=== PATIENT | female | born 1980 | race Caucasian/White ===

== ENCOUNTER 2017-09-25 02:54 | Inpatient (IN) ==
[~2017-09-25 02:54] MED LIST: Famotidine 20 MG/2 ML VIAL IVP PRN; Metoclopramide 10 MG/2 ML VIAL IVP PRN; Naloxone 0.4 MG/ML INJ IVP PRN; Ondansetron 4 MG/2 ML VIAL IVP PRN; Oxytocin 20 units/ LR 1000 mL 20 UNIT/1,000 ML BAG IVC SCH; Penicillin G Potassium 5,000,000 UNIT in 0.9 % Sodium Chloride Mini Bag 100 ML IVPB ONE
[2017-09-25 03:01] LABS: Basophils % 0.3 %; Eosinophils # 0.1 K/mcL (0.0-0.6); Eosinophils % 0.9 %; Hematocrit 35.2 % (35.3-44.9); Hemoglobin 12.2 g/dL (11.5-15.4); Immature Granulocytes % 0.5 % (0-4); Immature Platelets 17.7 % (1.1-6.1); Lymphocytes # 1.6 K/mcL (0.6-4.6); Lymphocytes % 12.6 %; Mean Corpuscular HGB Conc 34.7 g/dL (31.6-35.5); Mean Corpuscular Hemoglobin 31.3 pg (28.0-33.3); Mean Corpuscular Volume 90.3 fL (83.0-100.0); Mean Platelet Volume 12.7 fL (9.4-12.4); Monocytes # 0.9 K/mcL (0.0-1.3); Neutrophils # 10.1 K/mcL (1.6-8.9); Platelet Count 150 K/mcL (140-400); Segmented Neutrophils % 78.7 %
[2017-09-25] MEDS: Ringers Solution, Lactated 1,000 ML IVC SCH ×2 (03:08→07:37)
[2017-09-25] MEDS ORDERED: Penicillin G Potassium 2,500,000 UNIT in 0.9 % Sodium Chloride 100 ML IVPB SCH (04:00)
[2017-09-25] MEDS ORDERED: *HR* Nalbuphine 10 MG/ML AMPUL IV PRN (05:54)
[2017-09-25] MEDS ORDERED: Epidural Premix (fent/bupiv) 110 ML EP ONE (06:18)
[2017-09-25] MEDS ORDERED: Lidocaine -MPF 2% 5 ML VIAL ONE (06:20)
[2017-09-25 06:33] LABS: Amphetamine Screen,Urine Negative ng/mL (Cutoff=1000); Barbiturate Screen,Urine Negative ng/mL (Cutoff=200); Benzodiazepines Screen,Urine Negative ng/mL (Cutoff=200); Cannabinoid Screen,Urine Negative ng/mL (Cutoff = 50); Cocaine Screen,Urine Negative ng/mL (Cutoff= 300); Opiate Screen,Urine Negative ng/mL (Cutoff=300); Phencyclidine Screen,Urine Negative ng/mL (Cutoff=25)
[2017-09-25] MEDS ORDERED: EPHEDrine 50 MG/ML VIAL IVP PRN (06:52)
--- NOTE | 2017-09-25 06:56 | Anesthesia Evaluation PreOp ---
Date of Encounter: 09/25/17 Time of Encounter: 06:53 - Past History Planned Operation: vaginal del, G1 induction 37wk Cardiac History: Denies any Significant Hx Pulmonary History: Denies Any Significant HX [employer] History: Denies Any Significant HX Other Medical History: Other (previous one level hernated disc unsure what level , occ non dependent radiculopathy to right upper thigh,) Anesthesia History: No Prior Anesthetic Complications, Past Anesthesia Alcohol Use: none Drug use: none Medications and Allergies 3 Allergy/AdvReac Type Severity Reaction Status Date / Time No Known Allergies Allergy Verified 02/18/15 08:11 Anesthesia Results - Labs 09/25/17 02:51 Anesthesia Exam - HEENT Pupil (Motor): Pupils equal Mallampati: II Teeth: Normal Oral Opening: Greater than 3 - [employer] LOC: Oriented [employer] Motor: Normal RUE, Normal LUE, Normal RLE, Normal LLE, Normal Face [employer] Sensory: Normal: RUE, LUE, RLE, LLE, Face - Cardiac Rhythm: Regular Murmur: None - Pulmonary Breath Sounds: bilateral Clear Respiratory Effort: Symmetrical Anesthesia Assess/Plan ASA Score: 2 Modified Octavia Scale for Level of Consciousness: Cooperative, oriented, and tranquil Anesthetic Plan: General, Regional Monitoring Plan: Standard Monitors Recovery Plan: PACU
[2017-09-25] MEDS ORDERED: Epidural Premix (fent/bupiv) 110 ML EP SCH (07:00)
[2017-09-25] MEDS ORDERED: Chloroprocaine/PF 20 ML VIAL INFILT ONE (09:37)
[2017-09-25] MEDS ORDERED: *HR* Oxytocin 10 UNIT/ML VIAL IM ONE ×2 (09:37→10:01)
[2017-09-25] MEDS ORDERED: Water for inj. (sterile) 10 ML IV ONE (09:37)
[2017-09-25] MEDS ORDERED: MetroNIDAZOLE 500 MG/100 ML 500 MG/100 ML BAG IVPB ONE (09:44)
[2017-09-25] MEDS ORDERED: Morphine Sulfate/PF 5mg/10mL Vial ONE (09:48)
[2017-09-25] MEDS ORDERED: Ringers Solution, Lactated 1,000 ML ONE (10:01)
--- NOTE | 2017-09-25 10:06 | OB Labor Progress Note ---
Date of Encounter: 09/25/17 Time of Encounter: 09:19 Labor Progress Note - Plan Plan: CNM called to room by set staff fitter who state FHT are audible down in the 70's-80's and they are having difficulty tracing. FSE placed upon my arrival at 0914. At this point it appears FHT have been down for approx 3-4 minutes. Pt repositioned to right lateral position following FSE placement. Pitocin is off and IV LR is bolusing. Oxygen placed at 10 liters via facemask. FHT remain bradycardic. Pt repositioned to hands and knees with RN and CNM assist. At this time I requested RN to call Dr. Chirinos and/or Dr. Calhoun for possible delivery. Decision made at this time to move to OR. Pt moved from LDR 9 at 0919. Report given to Dr. Chirinos at this time.
[2017-09-25] MEDS ORDERED: Ondansetron 4 MG/2 ML VIAL IVP ONE (10:09)
[2017-09-25] MEDS ORDERED: *HR* Morphine 2 MG/ML SYRINGE IVP PRN (10:09)
[2017-09-25] MEDS ORDERED: *HR* HYDROmorphone (PF) 1 MG/ML SYRINGE IVP PRN (10:09)
[2017-09-25] MEDS ORDERED: *HR* Promethazine 25 MG/ML VIAL IVP PRN (10:09)
[2017-09-25] MEDS ORDERED: Acetaminophen IV 1,000 MG/100 ML INFUS..BTL IVPB ONE (10:09)
--- NOTE | 2017-09-25 11:14 | OB/GYN Procedure Note ---
Section - Date of procedure: 09/25/17 Preop diagnosis: category 3 FHT tracing (6cm,37 weeks) Post-op diagnosis: same (Anterior exophytic fibroid) Procedure: section, primary low transverse Surgeon: Fouzia Bonilla Blood Loss: 500 Was there an legal administrative assistant present: No Supervisor Wet Room: Rupinder Carlson Anesthesia Type: Epidural section complications: none Disposition: L&D Recovery Room Specimens: Placenta - (s) Infant A Delivery Date: 09/25/17 Delivery Time: 09:42 Presentation: vertex Position: MIGUEL Route of delivery: other ( section) Gender: Male Viability: Viable Pounds: 8 Ounces: 10 Gram Weight: 3.912 kg at 1 minute: 8 at 5 minutes: 9 Shoulder Dystocia: not encountered Placenta: spontaneous, uterine exploration Cord: nuchal cord, 3 umbilical vessels, nuchal reduced - Narrative Narrative: I was called by labor and delivery while in the main operating room to attend for heart rate in the 90s, for approximately 8 minutes despite patient repositioning by CNDeion, of a Angelo Bueno M.D. patient. Dr. Chirinos was contacted as he was available on the unit while I was making my way to labor and delivery. Upon my arrival the patient was in the labor and delivery operating room and prepped. She had an internal heart rate monitor which showed the heart tones as stable and reassuring in the 130s to 140s. At that time the was changed from emergent to unscheduled. Informed consent was obtained both verbally and written. The patient had the internal scalp electrode disconnected but it was unable to be removed. The patient was prepped and draped in the usual sterile fashion and a timeout was completed. A Pfannenstiel skin incision was made with the scalpel and sharply dissected down to the fascia in the midline. The fascial incision was then extended bilaterally with Hernández scissors. 2 straight Dax clamps are placed on the fascial edge inferiorly and the rectus muscles were sharply and bluntly reflected inferiorly. This was repeated superiorly. The diastases was then used to identify the peritoneum and this was grasped with 2 hemostats and entered with Metzenbaum scissors. There was a 5 x 4 exophytic fibroid noted anteriorly in the superior portion of the uterus which appeared smooth. The patient was awake and she was questioned if she was known to have this. She reported that she was in that by ultrasound it had not been changing in size. She also reported that she had an ultrasound a week ago which showed the baby weighed over 7 pounds. The bladder blade was placed to protect the bladder. The vesicouterine peritoneum was then grasped and reflected inferiorly using blunt and sharp dissection with Metzenbaum scissors. Bladder blade was replaced to protect the bladder. A low transverse incision was then made in the lower uterine segment with a scalpel down to the amnion. This was then extended bluntly bilaterally. The amnion was then bluntly entered and clear fluid was seen. This was followed by the vertex delivery of a vigorous male weighing 8 lbs. 10 oz. with Apgars of 8 at 1 minute and 9 at 5 minutes. There was a loose nuchal which was reduced. The cord was clamped and cut after a delay during which the was bulb suctioned on the operating field. A cord segment was obtained to be held in case there was need for it later. Cord blood was obtained, later to be discarded. The placenta was then delivered spontaneous and intact. The uterus was wiped clean with a moist lap sponge. The uterine incision was then closed in a running locking fashion. Gloves were changed. A second imbricating layer was made with 0 Vicryl suture. Good hemostasis was achieved with several [id number] sutures using 0 Vicryl. The tubes and ovaries were inspected and noted appeared to be grossly normal. Of note, there were several 5-10 millimeter size superficial fibroids, both anterior and posterior. Pelvis was then irrigated with sterile water and good hemostasis was assured. Peritoneal edges and rectus muscles were inspected and good hemostasis noted. Fascia was then closed using an 0 PDS loop in a running nonlocking fashion. Subcutaneous tissue was irrigated and good hemostasis achieved. The mutation layer was closed using a strata fixing a running nonlocking fashion. Skin was then closed with 4-0 Monocryl in a running subcuticular fashion. Dermabond with mesh was used to cover incision. Will was noted to be draining clear yellow urine at the end of procedure. Estimated blood loss 500 mL's. Complications none. Patient was taken to recovery room in stable condition. All sponge and instrument counts were correct at the end of the procedure.
--- NOTE | 2017-09-25 12:54 | Anesthesia Evaluation Post Op ---
Date of Encounter: 09/25/17 Time of Encounter: 12:00 - Vital Signs Vital Signs: VSS throughout recovery process. - Lungs Lungs: Clear Ascult./Percussion - Airway Airway: Non-obstructed - Cardiovascular Regular Rate - Mental Status Mental Status: Alert & Oriented, Answers Appropriately - Pain Pain Scale: 6 (down from an 8 or 9) Pain Scale used: Numeric (1 - 10) - Nausea Vomiting Nausea Vomiting: Not Present - Hydration Hydration: NPO, Will catheter - Discharge PostOp Status: Transfer Patient to floor
[2017-09-25] MEDS ORDERED: Oxytocin 20 units/ LR 1000 mL 20 UNIT/1,000 ML BAG IVC SCH (13:35)
[2017-09-25] MEDS ORDERED: Simethicone 80 MG TAB.CHEW PO PRN (13:35)
[2017-09-25] MEDS ORDERED: Metoclopramide 10 MG/2 ML VIAL IVP PRN (13:35)
[2017-09-25] MEDS ORDERED: Sennosides 8.6 MG TABLET PO PRN (13:35)
[2017-09-25] MEDS ORDERED: Ondansetron 4 MG/2 ML VIAL IVP PRN (13:35)
--- NOTE | 2017-09-25 14:23 | OB/GYN History & Physical ---
Date of Encounter: 09/25/17 Time of Encounter: 14:20 Assessment and Plan (1) Normal first stage of labor Current visit: Yes Status: Acute Plan is expectant management History of Present Illness HPI: Ms. Maldonado is a 36 year old female who presents to labor and delivery with spontaneous rupture of membranes. Patient jose irregularly on admission. She denied any complaints on admission. Baby was reactive. Irregular contractions noted. Past Med Surg Social Fam HX - Past Medical History Medical history: diabetes Psychiatric history: anxiety - Past Surgical History Additional surgical history: tonsils/adenoids,wisdom teeth - Social History Smoking Status: Former smoker Smokeless Tobacco Status: No Alcohol use: none Drug use: none - Family History Grandfather Adopted: No Family Member Ethnicity: Non- Living Status: Still Living Hx Family Cardiac Disorders: No Hx Family Respiratory Disorders: No Hx Family Cancer: No Hx Family GI Disorders: No Hx Family Genitourinary Disorders: No Hx Family Endocrine Disorder: Yes Hx Family Musculoskeletal Disorders: No Hx Family Neuromuscular Disorders: No Hx Family Neurologic Disorders: No Hx Family HEENT Disorders: No Hx Family Autoimmune Disorders: No Hx Family Reproductive Disorders: No Hx Family Psychosocial Disorders: No Hx Family Medical Disorders: No Obstetrical History - Pregnancies : 1 Medications and Allergies Multi Tablet 09/25/17 [History] 3 Allergy/AdvReac Type Severity Reaction Status Date / Time No Known Allergies Allergy Verified 02/18/15 08:11 Review of System OB - Menstruation Menstruation: amenorrhea Exam - Vital Signs Vital signs: Initial Vital Signs Temp Pulse Resp BP Pulse Ox 98.4 F 66 12 108/67 97 09/25/17 13:00 09/25/17 13:00 09/25/17 13:00 09/25/17 13:00 09/25/17 13:00 - Constitutional Constitutional: well developed, well nourished, no acute distress, average body habitus - HEENT HEENT: Normocephaly, Mucus Membranes Moist - Neck Neck exam: full ROM - Lungs Respiratory exam: CTAB - Cardiovascular Cardiovascular exam: RRR - Abdomen Abdomen: Present: bowel sounds normal, gravid, non tender - Extremities Extremities exam: full ROM, pedal edema Deep Tendon Reflex Grade: 2+ Normal - Cervix Dilation: 2 Effacement: 50 Station: -2 - Uterus Uterus exam: Present: enlarged Results Result Diagrams: 09/25/17 02:51 Abnormal lab results WBC 12.8 K/mcL (4.3-11.1) H 09/25/17 02:51 Hct 35.2 % (35.3-44.9) L 09/25/17 02:51 RDW 16.0 % (11.5-14.5) H 09/25/17 02:51 MPV 12.7 fL (9.4-12.4) H 09/25/17 02:51 Neutrophils # 10.1 K/mcL (1.6-8.9) H 09/25/17 02:51 Immature Plt Fraction 17.7 % (1.1-6.1) H 09/25/17 02:51 All other labs normal.
[2017-09-25] MEDS: Ibuprofen 600 MG TABLET PO PRN (21:10)
[2017-09-26 05:04] LABS: Basophils % 0.2 %; Eosinophils # 0.1 K/mcL (0.0-0.6); Eosinophils % 0.8 %; Hematocrit 31.8 % (35.3-44.9); Hemoglobin 10.6 g/dL (11.5-15.4); Immature Granulocytes % 0.8 % (0-4); Lymphocytes # 1.1 K/mcL (0.6-4.6); Lymphocytes % 7.4 %; Mean Corpuscular HGB Conc 33.3 g/dL (31.6-35.5); Mean Corpuscular Hemoglobin 30.2 pg (28.0-33.3); Mean Corpuscular Volume 90.6 fL (83.0-100.0); Monocytes # 1.3 K/mcL (0.0-1.3); Neutrophils # 11.5 K/mcL (1.6-8.9); Platelet Count 118 K/mcL (140-400); Red Blood Count 3.51 M/mcL (3.82-4.97); Segmented Neutrophils % 81.8 %
[2017-09-26] MEDS: Ibuprofen 600 MG TABLET PO PRN ×2 (05:18→16:16)
[2017-09-26] MEDS: Prenatal Vit/FA 1 EACH TABLET PO SCH (08:28)
[2017-09-26] MEDS: *HR* OxyCODONE/APAP 5/325 TABLET PO PRN ×2 (08:28→17:14)
--- NOTE | 2017-09-26 09:36 | Anesthesia Procedures ---
Date of Encounter: 09/26/17 (late entry done 09/25/17) Time of Encounter: 06:39 (late entry ) Procedures: Anesthesia - Epidural/Spinal Patient ID/Chart reviewed: Yes Patient examined: Yes OB Eval: : 1 OB Eval: Contractions: Non-stressed pattern Consent Obtained: Yes Supplemental Oxygen: None/Room Air Site Prep: Aseptic Technique, Sterile prep and drape, 0.5% Chlorhexidine/Alcohol Patient position: upright Local Anesthetic: Lidocaine 1% Amount of Local Anesthetic used: 2 Touhy Needle Gauge: 18 Touhy Needle Depth (cm): 7 Catheter Depth at Skin (cm): 12 Test Dose (1.5% Lido + Epi): Volume given (mls): 3 Test Dose Result: Negative Loading Dose: Other: 10ml from solution Loading Dose Administered: Thru Catheter Infusion Med: 0.125% Bupivacaine w/ 2 mcg/ml Fentanyl Infusion Rate (mls/hr): [address]: Tegaderm, Tape Interspace Used: L3-L4 Loss of Resistance (LISA): Yes (saline) Blood: No CSF: No Paresthesia: No Procedure: vss though out, FHR stable per RN's
--- NOTE | 2017-09-26 14:57 | OB/GYN Progress Note ---
Date of Encounter: 09/26/17 Time of Encounter: 14:54 - Assessment and Plan (1) S/P section Current Visit: Yes Status: Acute Stable POD #1 Continue current management Anticipate discharge tomorrow. Subjective - Subjective Interval history: Pain well managed, pt up and ambulating, voiding without difficulty, . Patient reports: voiding normally, pain well controlled, ambulating normally [place]: doing well, nursing well Objective - Vital Signs Latest vital signs: Vital Signs Temp Pulse Resp BP Pulse Ox 09/26/17 08:29 98.3 F 84 16 112/73 97 09/26/17 04:45 98.0 F 74 16 105/68 97 09/26/17 00:15 98.9 F 83 16 86/40 96 09/25/17 21:15 98.7 F 82 16 100/66 97 09/25/17 16:00 98.7 F 82 12 110/66 97 09/25/17 15:00 98.4 F 80 16 115/67 97 Intake and Output 09/25/17 09/26/17 09/26/17 23:59 07:59 15:59 Intake Total 500 / 500 400 / 400 Output Total 550 / 550 1550 / 1550 400 / 400 Balance -50 / -50 -1150 / -1150 -400 / -400 Intake: Oral 500 / 500 400 / 400 Output: Urine 400 / 400 Catheter 550 / 550 1550 / 1550 Other: Meal Dinner Percent of Meal Consumed 90% Weight 109.4 kg Patient Weight 09/26/17 23:59 Weight 109.4 kg - Exam Lungs: bilateral: normal Chest: Normal S1, Normal S2 Extremities: Present: normal Abdomen: Present: soft Incision: Present: dressed Uterus: Present: firm (at U) - Labs Labs: Laboratory Results - last 24 hr 09/26/17 04:50 WBC 14.1 H RBC 3.51 L Hgb 10.6 L D Hct 31.8 L MCV 90.6 MCH 30.2 MCHC 33.3 RDW 16.0 H Plt Count 118 L MPV 12.0 Immature Gran % 0.8 Seg Neutrophils % 81.8 Lymphocytes % 7.4 Monocytes % 9.0 Eosinophils % 0.8 Basophils % 0.2 Neutrophils # 11.5 H Lymphocytes # 1.1 Monocytes # 1.3 Eosinophils # 0.1 Basophils # 0.0
--- NOTE | 2017-09-26 16:09 | OB Labor Progress Note ---
Date of Encounter: 09/26/17 Time of Encounter: 17:42 Labor Progress Note - Subjective Subjective: Pt feeling well this afternoon. No complaints. Incision dry and intact. No signs of infection. Baby doing well, feeding well. - Plan Plan: Current management. Discharge to home tomorrow.
--- NOTE | 2017-09-26 16:12 | Discharge Summary ---
Date of Encounter: 09/26/17 Time of Encounter: 16:19 - Discharge Diagnosis (1) Normal first stage of labor Status: Acute - Discharge Medications Home Medications: Multi Tablet 09/25/17 [History] Allergies/Adverse Reactions: 3 Allergy/AdvReac Type Severity Reaction Status Date / Time No Known Allergies Allergy Verified 02/18/15 08:11 Data Procedures and tests throughout hospitalization: Laboratory Tests 09/25/17 09/25/17 09/26/17 02:51 05:58 04:50 WBC 12.8 H 14.1 H RBC 3.90 3.51 L Hgb 12.2 10.6 L D Hct 35.2 L 31.8 L MCV 90.3 90.6 MCH 31.3 30.2 MCHC 34.7 33.3 RDW 16.0 H 16.0 H Plt Count 150 118 L MPV 12.7 H 12.0 Immature Gran % 0.5 0.8 Seg Neutrophils % 78.7 81.8 Lymphocytes % 12.6 7.4 Monocytes % 7.0 9.0 Eosinophils % 0.9 0.8 Basophils % 0.3 0.2 Neutrophils # 10.1 H 11.5 H Lymphocytes # 1.6 1.1 Monocytes # 0.9 1.3 Eosinophils # 0.1 0.1 Basophils # 0.0 0.0 Immature Plt Fraction 17.7 H Urine Opiates Screen Negative Ur Barbiturates Screen Negative Ur Phencyclidine Scrn Negative Ur Amphetamines Screen Negative U Benzodiazepines Scrn Negative Urine Cocaine Screen Negative U Marijuana (THC) Screen Negative Ur Drug Screen Interp See Below Labs on day of discharge: Labs from last 24 hours 09/26/17 04:50 WBC 14.1 H RBC 3.51 L Hgb 10.6 L D Hct 31.8 L MCV 90.6 MCH 30.2 MCHC 33.3 RDW 16.0 H Plt Count 118 L MPV 12.0 Immature Gran % 0.8 Seg Neutrophils % 81.8 Lymphocytes % 7.4 Monocytes % 9.0 Eosinophils % 0.8 Basophils % 0.2 Neutrophils # 11.5 H Lymphocytes # 1.1 Monocytes # 1.3 Eosinophils # 0.1 Basophils # 0.0 - Impressions POD#2. s/p primary section. No complaints. Normal postoperative care. Date of admission: 09/25/17 02:54 Primary care physician: Ese Webster CNP Discharging clinician: Angelo Pavon Anticipated date of discharge: 09/26/17 - Patient Status Disposition: Home, Self-Care Condition: Good Functional capacity at discharge: independent ambulation Overall status at discharge: patient is back to baseline - Discharge Instructions Follow Up With: Ese Webster CNP [Primary Care Provider] - Angelo Pavon MD [Partnered Physician] - Hospital Course HEAD OF MUSIC Time Attestation: Total time spent providing and/or coordinating discharge services: Exam - Constitutional Vitals: Temp Pulse Resp BP Pulse Ox 98.3 F 84 16 112/73 97 09/26/17 08:29 09/26/17 08:29 09/26/17 08:29 09/26/17 08:29 09/26/17 08:29 General appearance IM: A&O X 3, pleasant, no acute distress - Respiratory Respiratory exam: Present: CTAB - Cardiovascular Cardiovascular exam IM: Present: RRR - GI/Abdominal GI/Abdominal exam IM: normal bowel sounds Incision: normal, dry, intact - Rectal Rectal exam: deferred - Uterine Tone: Firm Uterus Position: 4 Fingers Below Umbilicus - Extremities Exam Extremities exam IM: Present: normal inspection - VTE Documentation of Mechanical Device: Intermittent pneumatic compression device
--- NOTE | 2017-09-26 16:51 | Discharge Summary ---
Date of Encounter: 09/26/17 Time of Encounter: 17:58 - Discharge Diagnosis (1) Breast feeding status of mother Priority: Secondary Status: Acute (2) S/P section Priority: Primary Status: Acute - Discharge Medications Home Medications: Multi Tablet 09/25/17 [History] Allergies/Adverse Reactions: 3 Allergy/AdvReac Type Severity Reaction Status Date / Time No Known Allergies Allergy Verified 02/18/15 08:11 Data Procedures and tests throughout hospitalization: Laboratory Tests 09/25/17 09/25/17 09/26/17 02:51 05:58 04:50 WBC 12.8 H 14.1 H RBC 3.90 3.51 L Hgb 12.2 10.6 L D Hct 35.2 L 31.8 L MCV 90.3 90.6 MCH 31.3 30.2 MCHC 34.7 33.3 RDW 16.0 H 16.0 H Plt Count 150 118 L MPV 12.7 H 12.0 Immature Gran % 0.5 0.8 Seg Neutrophils % 78.7 81.8 Lymphocytes % 12.6 7.4 Monocytes % 7.0 9.0 Eosinophils % 0.9 0.8 Basophils % 0.3 0.2 Neutrophils # 10.1 H 11.5 H Lymphocytes # 1.6 1.1 Monocytes # 0.9 1.3 Eosinophils # 0.1 0.1 Basophils # 0.0 0.0 Immature Plt Fraction 17.7 H Urine Opiates Screen Negative Ur Barbiturates Screen Negative Ur Phencyclidine Scrn Negative Ur Amphetamines Screen Negative U Benzodiazepines Scrn Negative Urine Cocaine Screen Negative U Marijuana (THC) Screen Negative Ur Drug Screen Interp See Below Labs on day of discharge: Labs from last 24 hours 09/26/17 04:50 WBC 14.1 H RBC 3.51 L Hgb 10.6 L D Hct 31.8 L MCV 90.6 MCH 30.2 MCHC 33.3 RDW 16.0 H Plt Count 118 L MPV 12.0 Immature Gran % 0.8 Seg Neutrophils % 81.8 Lymphocytes % 7.4 Monocytes % 9.0 Eosinophils % 0.8 Basophils % 0.2 Neutrophils # 11.5 H Lymphocytes # 1.1 Monocytes # 1.3 Eosinophils # 0.1 Basophils # 0.0 Date of admission: 09/25/17 02:54 Primary care physician: Ese Webster CNP Discharging clinician: Alexa Pereira Anticipated date of discharge: 09/27/17 - Patient Status Disposition: Home, Self-Care Condition: Good - Discharge Instructions Follow Up With: Ese Webster CNP [Primary Care Provider] - Angelo Pavon MD [Partnered Physician] - - Diet and Activity Activity: increase activity as tolerated Diet: regular diet Hospital Course Delivery: section Discharge diagnosis: IUP at term delivered Time Attestation: Total time spent providing and/or coordinating discharge services: Time Spent: Less than 30 minutes - VTE Documentation of Mechanical Device: Intermittent pneumatic compression device Exam - Constitutional Vitals: Temp Pulse Resp BP Pulse Ox 98.3 F 84 16 112/73 97 09/26/17 08:29 09/26/17 08:29 09/26/17 08:29 09/26/17 08:29 09/26/17 08:29
[2017-09-27] MEDS: *HR* OxyCODONE/APAP 5/325 TABLET PO PRN ×2 (04:44→08:52)
[2017-09-27 08:27] VITALS: BP 112/70
--- NOTE | 2017-09-27 08:45 | Discharge Summary ---
Date of Encounter: 09/27/17 Time of Encounter: 08:39 - Discharge Diagnosis (1) Normal first stage of labor Priority: Secondary Status: Acute (2) S/P section Priority: Primary Status: Acute (3) Breast feeding status of mother Priority: Secondary Status: Acute - Discharge Medications Prescriptions: OxyCODONE/APAP 5/325 [Percocet 5/325 MG] 1 each PO Q4HR PRN 7 Days #30 tablet PRN Reason: Moderate pain 4-6 Breast Pump [BREAST PUMP] 1 each .ROUTE AD #1 each Cephalexin [Keflex] 500 mg PO 1-2XD 5 Days #10 capsule Home Medications: Multi Tablet 09/25/17 [History] Breast Pump [BREAST PUMP] 1 each .ROUTE AD #1 each 09/27/17 [Rx] Cephalexin [Keflex] 500 mg PO 1-2XD 5 Days #10 capsule 09/27/17 [Rx] OxyCODONE/APAP 5/325 [Percocet 5/325 MG] 1 each PO Q4HR PRN 7 Days #30 tablet [Rx] Allergies/Adverse Reactions: 3 Allergy/AdvReac Type Severity Reaction Status Date / Time No Known Allergies Allergy Verified 02/18/15 08:11 Data Procedures and tests throughout hospitalization: Laboratory Tests 09/25/17 09/25/17 09/26/17 02:51 05:58 04:50 WBC 12.8 H 14.1 H RBC 3.90 3.51 L Hgb 12.2 10.6 L D Hct 35.2 L 31.8 L MCV 90.3 90.6 MCH 31.3 30.2 MCHC 34.7 33.3 RDW 16.0 H 16.0 H Plt Count 150 118 L MPV 12.7 H 12.0 Immature Gran % 0.5 0.8 Seg Neutrophils % 78.7 81.8 Lymphocytes % 12.6 7.4 Monocytes % 7.0 9.0 Eosinophils % 0.9 0.8 Basophils % 0.3 0.2 Neutrophils # 10.1 H 11.5 H Lymphocytes # 1.6 1.1 Monocytes # 0.9 1.3 Eosinophils # 0.1 0.1 Basophils # 0.0 0.0 Immature Plt Fraction 17.7 H Urine Opiates Screen Negative Ur Barbiturates Screen Negative Ur Phencyclidine Scrn Negative Ur Amphetamines Screen Negative U Benzodiazepines Scrn Negative Urine Cocaine Screen Negative U Marijuana (THC) Screen Negative Ur Drug Screen Interp See Below Date of admission: 09/25/17 02:54 Primary care physician: Ese Webster CNP Discharging clinician: Angelo Pavon Anticipated date of discharge: 09/27/17 - Patient Status Disposition: Home, Self-Care Condition: Good - Discharge Instructions Follow Up With: Ese Webster CNP [Primary Care Provider] - Angelo Pavon MD [Partnered Physician] - Hospital Course Delivery: section Time Attestation: Total time spent providing and/or coordinating discharge services: - VTE Documentation of Mechanical Device: Intermittent pneumatic compression device Exam - Constitutional Vitals: Temp Pulse Resp BP Pulse Ox 98.3 F 87 16 112/70 98 09/27/17 07:30 09/27/17 07:30 09/27/17 07:30 09/27/17 07:30 09/26/17 20:14
[2017-09-27] MEDS: Prenatal Vit/FA 1 EACH TABLET PO SCH (08:52)
== END 2017-09-27 13:09 | disposition home or self-care (01) | DRG 766 ==
LOC: 1NENULAB → 1NENUOBS 13:06
PROVIDERS: ADMIT Obstetrics & Gynecology; ATTEND Obstetrics & Gynecology